=== PATIENT | male | born 1985 | race Caucasian/White ===

== ENCOUNTER 2018-04-10 04:14 | Day surgery (SDC) | payer OTHER ==
[2018-04-10 05:08] LABS: AMORPHOUS SEDIMENT RFX SMALL (NEGATIVE); KETONE, URINE AUTO RFX NEGATIVE (NEGATIVE); LEUKOCYTE ESTERASE UR AUTO RFX NEGATIVE (NEGATIVE); MUCUS, URINE RFX SMALL (NEGATIVE); NITRITE, URINE AUTO RFX NEGATIVE (NEGATIVE); RBC, URINE AUTO RFX 1 /HPF (0-3); SPECIFIC GRAVITY UR AUTO RFX 1.017 (1.002-1.035); SQUAM EPITHELIAL CELL UR AURFX 0 /HPF (0-6); WBC, URINE AUTO RFX 1 /HPF (0-3)
[2018-04-10] MEDS: KETOROLAC 30 MG/ML VIAL (J1885) IV ×4 (05:45→20:20)
[2018-04-10] MEDS: ONDANSETRON 4MG/2ML VIAL (J2405) IV ×2 (05:45→05:59)
[2018-04-10] MEDS ORDERED: ONDANSETRON 4MG/2ML VIAL (J2405) As Ordered (05:55)
[2018-04-10] MEDS ORDERED: KETOROLAC 30 MG/ML VIAL (J1885) As Ordered (05:55)
[2018-04-10 06:09] LABS: BASO % 0.2 % (0.0-1.0); EOS # 0.1 10^3/uL (0.0-0.50); EOS % 0.6 % (0.0-3.0); HEMATOCRIT 44.6 % (42.0-52.0); HEMOGLOBIN 15.6 g/dl (13.5-17.5); IMMATURE GRANULOCYTE % 0.3 % (0-3.0); LYMPH # 1.3 10^3/uL (1.5-4.5); MEAN CORPUSCULAR HEMOGLOBIN 28.9 pg (27.0-33.0); MEAN CORPUSCULAR VOLUME 82.6 fl (80.0-96.0); MONO # 0.6 10^3/uL (0.0-0.8); MONO % 4.2 % (0.0-5.0); NEUTROPHILS # 12.3 10^3/uL (1.8-7.7); NEUTROPHILS % 85.7 % (36.0-66.0); PLATELET COUNT, AUTOMATED 257 10^3/uL (150-450); RED CELL DISTRIBUTION WIDTH 12.1 % (11.5-14.5); WHITE BLOOD COUNT 14.4 10^3/uL (4.0-10.0)
[2018-04-10 06:27] LABS: ALBUMIN 4.4 GM/DL (3.2-5.2); ALBUMIN/GLOBULIN RATIO 0.96 (1.00-1.93); ALKALINE PHOSPHATASE 105 U/L (45-117); ALT/SGPT 171 U/L (12-78); ANION GAP 8 MEQ/L (8-16); AST/SGOT 454 U/L (7-37); BILIRUBIN,DIRECT 0.1 MG/DL (0.0-0.2); BILIRUBIN,TOTAL 0.5 MG/DL (0.2-1.0); BLOOD UREA NITROGEN 11 MG/DL (7-18); CALCIUM LEVEL 9.3 MG/DL (8.5-10.1); CARBON DIOXIDE LEVEL 30 MEQ/L (21-32); CHLORIDE LEVEL 102 MEQ/L (98-107); GLOMERULAR FILTRATION RATE > 60.0 (>60); GLUCOSE, FASTING 130 MG/DL (70-100); LIPASE 144 U/L (73-393); SODIUM LEVEL 140 MEQ/L (136-145)
[2018-04-10] MEDS: NS 1,000 ML IV ×3 (06:30→16:48)
[2018-04-10] MEDS ORDERED: BUPIVACAINE/EPIN 0.25% 30 ML VIAL ×2 (07:16→08:32)
[2018-04-10] MEDS ORDERED: LIDOCAINE 2% INJ 100 MG/5 ML SDV (FOR ANES.) (08:10)
[2018-04-10] MEDS ORDERED: MIDAZOLAM INJ 2 MG/2 ML VIAL (J2250) (08:10)
[2018-04-10] MEDS ORDERED: fentaNYL 250 MCG/5 ML INJECTION (J3010) (08:10)
[2018-04-10] MEDS ORDERED: ROCURONIUM BROMIDE 50 MG/5 ML VIAL (08:10)
[2018-04-10] MEDS ORDERED: ONDANSETRON 4MG/2ML VIAL (J2405) (08:10)
[2018-04-10] MEDS ORDERED: dexameTHASONE 4 MG/ML 1ML VIAL (J1100) (08:10)
[2018-04-10] MEDS ORDERED: SUCCINYLCHOLINE 100 MG/5 ML SYRINGE (J0330) (08:10)
[2018-04-10] MEDS ORDERED: SUGAMMADEX SODIUM 500 MG/5 ML VIAL (BRIDION) (08:10)
[2018-04-10] MEDS ORDERED: PROPOFOL 200 MG/20 ML VIAL (08:10)
[2018-04-10] MEDS ORDERED: KETOROLAC 60 MG/2 ML VIAL (J1885) (08:13)
[2018-04-10] MEDS: PIPERACILLIN/TAZOBACTAM SOD 3.375 GM in D5W MINI-BAG PLUS 50 ML IV (08:15)
[2018-04-10] MEDS ORDERED: NORCO, ANEXSIA 5/325MG TABLET (HYDROcodone/ACETAMINOPHEN) As Ordered (08:22)
[2018-04-10] MEDS ORDERED: ONDANSETRON 4MG/2ML VIAL (J2405) IV (08:30)
[2018-04-10] MEDS ORDERED: MORPHINE 4 MG/ML 1ML VIAL/SYRINGE (J2270) IV (08:30)
[2018-04-10] MEDS ORDERED: ACETAMINOPHEN TAB 650MG DOSE (2X325MG) PO (08:30)
[2018-04-10] MEDS ORDERED: fentaNYL 100 MCG/2 ML INJECTION (J3010) (08:50)
[2018-04-10] MEDS ORDERED: PERCOCET 5MG/325MG TAB (08:50)
[2018-04-10] MEDS: NORCO, ANEXSIA 5/325MG TABLET (HYDROcodone/ACETAMINOPHEN) PO (09:18)
[2018-04-10] MEDS: SENOKOT S TAB PO ×2 (09:18→20:20)
[2018-04-10 10:43] LABS: AMORPHOUS SEDIMENT RFX SMALL (NEGATIVE); KETONE, URINE AUTO RFX NEGATIVE (NEGATIVE); LEUKOCYTE ESTERASE UR AUTO RFX NEGATIVE (NEGATIVE); MUCUS, URINE RFX SMALL (NEGATIVE); NITRITE, URINE AUTO RFX NEGATIVE (NEGATIVE); RBC, URINE AUTO RFX 0 /HPF (0-3); SPECIFIC GRAVITY UR AUTO RFX 1.018 (1.002-1.035); SQUAM EPITHELIAL CELL UR AURFX 0 /HPF (0-6); WBC, URINE AUTO RFX 1 /HPF (0-3)
[2018-04-10] MEDS: HEPARIN SOD (PORCINE) 5000 UNITS/ML VIAL SC ×2 (14:04→22:00)
[2018-04-11] MEDS: NS 1,000 ML IV ×2 (00:19→08:19)
[2018-04-11] MEDS: HEPARIN SOD (PORCINE) 5000 UNITS/ML VIAL SC ×2 (03:47→13:46)
[2018-04-11] MEDS: KETOROLAC 30 MG/ML VIAL (J1885) IV (03:53)
[2018-04-11 07:18] LABS: HEMOGLOBIN 15.2 g/dl (13.5-17.5); MEAN CORPUSCULAR HEMOGLOBIN 29.2 pg (27.0-33.0); MEAN CORPUSCULAR HGB CONC 34.5 g/dl (32.0-36.5); MEAN CORPUSCULAR VOLUME 84.5 fl (80.0-96.0); PLATELET COUNT, AUTOMATED 254 10^3/uL (150-450); RED BLOOD COUNT 5.21 10^6/uL (4.30-6.10); RED CELL DISTRIBUTION WIDTH 12.2 % (11.5-14.5); WHITE BLOOD COUNT 13.7 10^3/uL (4.0-10.0)
[2018-04-11 07:30] LABS: ALBUMIN 3.7 GM/DL (3.2-5.2); ALBUMIN/GLOBULIN RATIO 0.88 (1.00-1.93); ALKALINE PHOSPHATASE 95 U/L (45-117); ALT/SGPT 127 U/L (12-78); ANION GAP 6 MEQ/L (8-16); AST/SGOT 206 U/L (7-37); BILIRUBIN,TOTAL 0.7 MG/DL (0.2-1.0); BLOOD UREA NITROGEN 6 MG/DL (7-18); CALCIUM LEVEL 8.5 MG/DL (8.5-10.1); CARBON DIOXIDE LEVEL 28 MEQ/L (21-32); CHLORIDE LEVEL 105 MEQ/L (98-107); CREATININE FOR GFR 0.85 MG/DL (0.70-1.30); GLOMERULAR FILTRATION RATE > 60.0 (>60); GLUCOSE, FASTING 106 MG/DL (70-100); POTASSIUM SERUM 4.1 MEQ/L (3.5-5.1); SODIUM LEVEL 139 MEQ/L (136-145); TOTAL PROTEIN 7.9 GM/DL (6.4-8.2)
[2018-04-11] MEDS: BUPIVACAINE/EPIN 0.25% 30 ML VIAL XX (08:30)
[2018-04-11] MEDS ORDERED: HYDROMORPHONE HCL 0.5 MG/ 0.5 ML SYRINGE (J1170 PER 1) IV (09:00)
[2018-04-11] MEDS: SENOKOT S TAB PO (09:00)
[2018-04-11] MEDS ORDERED: ONDANSETRON 4MG/2ML VIAL (J2405) IV (09:00)
[2018-04-11] MEDS: LR 1,000 ML IV (09:00)
[2018-04-11] MEDS: fentaNYL 100 MCG/2 ML INJECTION (J3010) IV ×2 (09:05→09:10)
[2018-04-11] MEDS: PERCOCET 5MG/325MG TAB PO (09:10)
== END 2018-04-11 14:00 | disposition home or self-care (01) ==
LOC: M SDC 04-11 14:00 → M ED 04:14 → M SDC 08:19 → M PED 11:27
DX: K80.18 Calculus of gallbladder with other cholecystitis without obstruction (principal)
CPT/HCPCS: 47562

== ENCOUNTER → 2018-04-11 | Day surgery (SDC) | payer OTHER ==
[~2018-04-11] MED LIST: BUPIVACAINE/EPIN 0.25% 30 ML VIAL As Ordered; KETOROLAC 60 MG/2 ML VIAL (J1885) As Ordered; LIDOCAINE 2% INJ 100 MG/5 ML SDV (FOR ANES.) As Ordered; MIDAZOLAM INJ 2 MG/2 ML VIAL (J2250) As Ordered; ONDANSETRON 4MG/2ML VIAL (J2405) As Ordered; PERCOCET 5MG/325MG TAB As Ordered; PROPOFOL 200 MG/20 ML VIAL As Ordered; ROCURONIUM BROMIDE 50 MG/5 ML VIAL As Ordered; SUCCINYLCHOLINE 100 MG/5 ML SYRINGE (J0330) As Ordered; SUGAMMADEX SODIUM 500 MG/5 ML VIAL (BRIDION) As Ordered; dexameTHASONE 4 MG/ML 1ML VIAL (J1100) As Ordered; fentaNYL 100 MCG/2 ML INJECTION (J3010) As Ordered; fentaNYL 250 MCG/5 ML INJECTION (J3010) As Ordered
== END | disposition other institution (70) ==
LOC: M SDC 07:30
DX: K81.0 Acute cholecystitis (principal); Z53.8 Procedure and treatment not carried out for other reasons